=== PATIENT | male | born 1940 | race Caucasian/White ===

== ENCOUNTER 2018-01-17 06:00 | Emergency (ER) | payer MEDICARE, OTHER, SELFPAY | END 2018-01-17 09:45 | disposition home or self-care (01) | PROVIDERS: Emergency Provider Emergency Medicine; Visit Provider Emergency Medicine | DX: R07.9 Chest pain, unspecified (principal); W19.XXXA Unspecified fall, initial encounter; R29.898 Other symptoms and signs involving the musculoskeletal system; Z86.73 Personal history of transient ischemic attack (TIA), and cerebral infarction without residual deficits; C44.209 Unspecified malignant neoplasm of skin of left ear and external auricular canal | CPT/HCPCS: 70450; 71010; 71045; 80048; 84484; 85025; 85610; 85730; 93005; 93010; 99058; 99285 ==